=== PATIENT | male | born 1950 | race Two or more races ===

== ENCOUNTER 2022-06-24 10:52 | Inpatient (IN) | payer OTHER ==
[~2022-06-24] VITALS: Ht 172.7 cm; Wt 83.0 kg
[2022-06-24] MEDS ORDERED: LOTREL 5-20 MG1 CAP PO (11:01)
[2022-06-24] MEDS ORDERED: XARELTO20 MG PO (11:01)
[2022-06-24] MEDS ORDERED: GLIMEPIRIDE1 MG (11:02)
[2022-06-26] MEDS ORDERED: ROSUVASTATIN CAL5 MG (09:37)
[2022-06-26] MEDS ORDERED: NADOLOL40 MG (09:37)
== END 2022-06-26 13:53 | disposition home or self-care (01) | DRG 65 ==
LOC: ER 10:52 → MEDI 19:57
PROVIDERS: ADMIT Internal Medicine; ATTEND Internal Medicine
PROC: B54BZZZ Ultrasonography of Right Lower Extremity Veins (ICD-10-PCS; principal; 2022-06-24)
PROC: BW38ZZZ Magnetic Resonance Imaging (MRI) of Head (ICD-10-PCS; 2022-06-24)
PROC: B345ZZZ Ultrasonography of Bilateral Common Carotid Arteries (ICD-10-PCS; 2022-06-24)
PROC: BW28ZZZ Computerized Tomography (CT Scan) of Head (ICD-10-PCS; 2022-06-24)
PROC: B24BZZZ Ultrasonography of Heart with Aorta (ICD-10-PCS; 2022-06-25)
PROC: 4A12X4Z Monitoring of Cardiac Electrical Activity, External Approach (ICD-10-PCS; 2022-06-25)
DX: I63.81 Other cerebral infarction due to occlusion or stenosis of small artery (principal); N17.9 Acute kidney failure, unspecified; I48.91 Unspecified atrial fibrillation; E78.5 Hyperlipidemia, unspecified; Z79.4 Long term (current) use of insulin; I12.9 Hypertensive chronic kidney disease with stage 1 through stage 4 chronic kidney disease, or unspecified chronic kidney disease; E11.22 Type 2 diabetes mellitus with diabetic chronic kidney disease; N18.9 Chronic kidney disease, unspecified; Z20.822 Contact with and (suspected) exposure to COVID-19
CPT/HCPCS: 70551